=== PATIENT | male | born 1995 | race Caucasian/White ===

== ENCOUNTER 2018-08-15 08:58 | Emergency (ER) | payer SELFPAY ==
[~2018-08-15] VITALS: Ht 170.2 cm; Wt 57.6 kg
[2018-08-15] MEDS ORDERED: AZIT250T12 PO (10:37)
[2018-08-15] MEDS ORDERED: METH4TAB PO (10:37)
--- NOTE | 2018-08-15 10:37 | ED Cough/URI ---
General Chief Complaint: Cough/Cold/Flu Symptoms Stated Complaint: BACK PAIN;RESP PROBLEMS Source: patient Exam Limitations: no limitations History of Present Illness Date Seen by Provider: Aug 15, 2018 Time Seen by Provider: 10:33 Initial Comments To ER with reports of bilateral lateral lower back pain intermittently not present currently, productive cough for 2 months with rhinorrhea and no fevers as well as hemoptysis that started yesterday. He states that he has a mouse infestation in his house that he has been cleaning up and he is worried that he has hantavirus. Timing/Duration: constant Severity/Quality: productive cough, blood streaked sputum Associated Symptoms: cough Allergies and Home Medications Patient Home Medication List Home Medication List Reviewed: Yes Review of Systems Review of Systems Constitutional: see HPI; No chills, No fever EENTM: see HPI Respiratory: see HPI, cough, hemoptysis, phlegm Cardiovascular: no symptoms reported Genitourinary: no symptoms reported Musculoskeletal: no symptoms reported Skin: no symptoms reported Psychiatric/Neurological: No Symptoms Reported Hematologic/Lymphatic: No Symptoms Reported Physical Exam Capillary Refill : Height: '" Weight: lbs. oz. kg; BMI Method: General Appearance: WD/WN, no apparent distress Eyes: Bilateral Eye Normal Inspection, Bilateral Eye PERRL, Bilateral Eye EOMI HEENT: PERRL/EOMI, normal ENT inspection, TMs normal, pharynx normal Neck: non-tender, full range of motion Respiratory: normal breath sounds, no respiratory distress, no accessory muscle use Gastrointestinal: normal bowel sounds, non tender, soft Neurologic/Psychiatric: alert, normal mood/affect, oriented x 3 Skin: normal color, warm/dry Progress/Results/Core Measures Suspected Sepsis SIRS Temperature: Pulse: Respiratory Rate: Blood Pressure / Mean: Results/Orders My Orders Orders - COSTA SERRANO APRN Chest Pa/Lat (2 View) (08/15/18 10:32) Vital Signs/I&O Capillary Refill : Departure Impression Primary Impression: Bronchitis Disposition: 01 HOME, SELF-CARE Condition: Stable Departure-Patient Inst. Decision time for Depature: 10:34 Patient Instructions: Acute Bronchitis, Adult (DC) Add. Discharge Instructions: 1. Medication as directed 2. Return to ER for any concerns 3. All discharge instructions reviewed with patient and/or family. Voiced understanding. Scripts Methylprednisolone (Medrol) 4 Mg Tab.ds.pk 4 MG PO UD, #1 PKG Prov: COSTA SERRANO BAKERY DELIVERER 08/15/18 Azithromycin (Azithromycin) 250 Mg Tablet 250 MG PO UD, #6 TAB TAKE 2 TABLETS ON DAY ONE THEN TAKE 1 TABLET DAILY FOR FOUR MORE DAYS Prov: COSTA SERRANO BAKERY DELIVERER 08/15/18 COSTA SERRANO BAKERY DELIVERER Aug 15, 2018 10:37
--- NOTE | 2018-08-15 11:00 | Diagnostic Imaging Report ---
INDICATION: Cough. Time of exam 11:13 a.m. COMPARISON: No prior studies are available for comparison. FINDINGS: The heart size is normal. The lungs are clear. No infiltrate is detected. No effusion or pneumothorax is seen. The pulmonary vascularity is unremarkable. IMPRESSION: No acute cardiopulmonary process is detected. Dictated by: Dictated on workstation # [id number]
[2018-08-15 13:49] VITALS: BP 138/68
== END 2018-08-15 11:03 | disposition home or self-care (01) ==
LOC: EDUNIT# 08:58 → ER 08:59
DX: J40 Bronchitis, not specified as acute or chronic (principal)
CPT/HCPCS: 71046

== ENCOUNTER 2019-11-22 19:00 | Emergency (ER) | payer SELFPAY ==
[~2019-11-22] VITALS: Ht 170 cm; Wt 59.1 kg
[~2019-11-22 19:00] MED LIST: AZIT250T12 PO; METH4TAB PO
--- OUTSIDE RECORDS SUMMARY | 2019-11-22 19:05 | XMS REPORT | Continuity of Care Document ---
Author Organization Unknown Address Unknown Phone Unavailable Allergies There is no data. Medications There is no data. Problems Date Dx Coded Attending Type Code Diagnosis Diagnosed By 08/17/2018 COSTA SERRANO APRN Ot J40 BRONCHITIS, NOT SPECIFIED ACUTE OR CH 08/17/2018 COSTA SERRANO APRN Ot M54 .5 LOW BACK PAIN Procedures There is no data. Results Test Result Range CULTURE, ANAEROBIC AND AEROBIC - 0 15:39 CULTURE, ANAEROBIC BACTERIA W/GRAM STAIN SEE NOTE NRG CULTURE, AEROBIC BACTERIA SEE NOTE NRG Encounters ACCT No. Visit Date/Time Discharge Status Pt. Type Provider Facility Loc./Unit Complaint [id number] 09/27/2019 13:35:00 09/27/2019 23:59: 59 CLS Outpatient SAMUEL CID LAC [facility] [id number] 09/27/2019 13:35:00 Document Registration [id number] 08/15/2018 08:59:00 019 11:03:00 DIS Outpatient COSTA SERRANO APRN [facility] ER BACK PAIN;RESP PROBLEMS [id number] 11/22/2019 19:01:[address] Emergency STACY RIVERA [facility] ER TOOTH PAIN
[2019-11-22 19:06] VITALS: BP 132/87
[2019-11-22] MEDS ORDERED: AMOX-358 PO (19:24)
--- NOTE | 2019-11-22 19:25 | ED EENT ---
History of Present Illness General Chief Complaint: Dental Problems/Pain Stated Complaint: TOOTH PAIN Nursing Triage Note: Pt ambulates to FT1 with c/o right lower tooth infection x 1 mo that started spreading and causing swelling to neck yesterday. Pt denies any pain, is hoping to get on Abx. Source: patient Exam Limitations: no limitations History of Present Illness Date Seen by Provider: Nov 22, 2019 Time Seen by Provider: 19:22 Initial Comments 24-year-old male who presents to the emergency room complaining of lower right dental pain and tooth infection for the past month. He does have an appointment to see a dentist at [facility] dental. He denies any pain at this time but is requesting antibiotics for his infection. Denies fevers. Location: dental Associated Symptoms: other (dental infection) Allergies and Home Medications Allergies Coded Allergies: No Known Drug Allergies (Unverified , 11/22/19) Home Medications Amoxicillin/Potassium Clav 1 Each Tablet, 1 EACH PO BID Prescribed by: STACY RIVERA on 11/22/191923 Azithromycin 250 Mg Tablet, 250 MG PO UD TAKE 2 TABLETS ON DAY ONE THEN TAKE 1 TABLET DAILY FOR FOUR MORE DAYS Prescribed by: COSTA SERRANO on 08/15/18 1037 Methylprednisolone 4 Mg Tab.ds.pk, 4 MG PO UD Prescribed by: COSTA SERRANO on 08/15/18 1037 Patient Home Medication List Home Medication List Reviewed: Yes Review of Systems Review of Systems Constitutional: see HPI; No chills, No fever Mouth: see HPI, other (and dental infection) All Other Systems Reviewed Negative Unless Noted: Yes Past Pibmaim-Ddjtns-Zqgswu Hx Past Med/Social Hx: Reviewed Nursing Past Med/Soc Hx Patient Social History Recent Foreign Travel: No Contact w/Someone Who Travel: No Recent Infectious Disease Expo: No Recent Hopitalizations: No Seasonal Allergies Seasonal Allergies: No Past Medical History Surgeries: No Respiratory: No Cardiac: No Neurological: No Genitourinary: No Gastrointestinal: No Musculoskeletal: No Endocrine: No HEENT: No Cancer: No Psychosocial: No Integumentary: No Blood Disorders: No Family Medical History Reviewed Nursing Family Hx Physical Exam Vital Signs Vital Signs - First Documented 11/22/19 19:06 Temp 36.8 Pulse 76 Resp 20 B/P (MAP) 132/87 (102) Pulse Ox 99 O2 Delivery Room Air Height, Weight, BMI Height: 5'7.00" Weight: 127lbs. oz. 57.609738rp; 20.00 BMI Method:Stated General Appearance: WD/WN, no apparent distress Mouth/Throat: other (right lower gum swelling and dental caries.) Cardiovascular: normal peripheral pulses, regular rate, rhythm, no edema, no gallop, no JVD, no murmur Respiratory: chest non-tender, lungs clear, normal breath sounds, no respira tory distress, no accessory muscle use Neurologic/Psychiatric: alert, normal mood/affect, oriented x 3 Skin: normal color, warm/dry Progress/Results/Core Measures Results/Orders My Orders Orders - STACY RIVERA Amoxicillin/Clavulanate Tablet (Augmenti (11/22/19 19:30) Vital Signs/I&O 11/22/19 19:06 Temp 36.8 Pulse 76 Resp 20 B/P (MAP) 132/87 (102) Pulse Ox 99 O2 Delivery Room Air Blood Pressure Mean: 102 Departure Impression Primary Impression: Dental abscess Disposition: HOME, SELF-CARE Condition: Stable/Unchanged Departure-Patient Inst. Decision time for Depature: 19:22 Referrals: NO,LOCAL PHYSICIAN (PCP/Family) Primary Care Physician Patient Instructions: Tooth Abscess (DC) Add. Discharge Instructions: Take medication as directed. Follow up with dentist with in 1 week for a recheck. Tylenol or ibuprofen as needed for pain. Return back to the ED for worsening symptoms or concerns as needed. All discharge instructions reviewed with patient and/or family. Voiced understanding. Scripts Amoxicillin/Potassium Clav (Augmentin 875-125 Tablet) 1 Each Tablet 1 EACH PO BID for 10 Days, #20 TAB 0 Refills Prov: STACY RIVERA 11/22/19 STACY RIVERA Nov 22, 2019 19:25
[2019-11-22] MEDS ORDERED: AUGMENTIN 875 MG TAB (AMOXICILLIN/CLAVULANATE) PO SCH (19:30)
== END 2019-11-22 19:36 | disposition home or self-care (01) ==
LOC: EDUNIT# 19:00 → ER 19:01
DX: K04.7 Periapical abscess without sinus (principal)
CPT/HCPCS: 99283

== ENCOUNTER 2019-12-18 19:43 | Emergency (ER) | payer SELFPAY ==
[~2019-12-18] VITALS: Ht 170.2 cm; Wt 55.6 kg
[~2019-12-18 19:43] MED LIST changes: +AMOX-358 PO
[2019-12-18] MEDS ORDERED: NS IV 1000 ML 1,000 ML IV SCH (19:49)
[2019-12-18 20:11] LABS: BASOPHILS % (AUTO) 1 % (0-10); EOSINOPHILS # (AUTO) 0.1 10^3/uL (0.0-0.3); EOSINOPHILS % (AUTO) 1 % (0-10); HEMATOCRIT 43 % (40-54); HEMOGLOBIN 15.3 G/DL (13.3-17.7); LYMPHOCYTES # (AUTO) 1.4 X 10^3 (1.0-4.0); LYMPHOCYTES % (AUTO) 24 % (12-44); MEAN CORPUSCULAR HEMOGLOBIN 30 PG (25-34); MEAN CORPUSCULAR HGB CONC 36 G/DL (32-36); MEAN CORPUSCULAR VOLUME 83 FL (80-99); MEAN PLATELET VOLUME 10.2 FL (7.4-10.4); MONOCYTES # (AUTO) 0.7 X 10^3 (0.0-1.0); MONOCYTES % (AUTO) 12 % (0-12); NEUTROPHILS # (AUTO) 3.6 X 10^3 (1.8-7.8); NEUTROPHILS % (AUTO) 63 % (42-75); PLATELET COUNT 220 10^3/uL (130-400); RED CELL DISTRIBUTION WIDTH 12.8 % (10.0-14.5); WHITE BLOOD COUNT 5.7 10^3/uL (4.3-11.0)
[2019-12-18 20:12] LABS: BILIRUBIN,URINE NEGATIVE (NEGATIVE); CLARITY,URINE CLEAR; COLOR,URINE YELLOW; GLUCOSE, URINE (UA) NEGATIVE (NEGATIVE); KETONES,URINE NEGATIVE (NEGATIVE); LEUKOCYTE ESTERASE ,URINE NEGATIVE (NEGATIVE); NITRITE,URINE NEGATIVE (NEGATIVE); PH,URINE 6.5 (5-9); PROTEIN,URINE 1+ (NEGATIVE)
[2019-12-18 20:28] LABS: ALANINE AMINOTRANSFERASE 55 U/L (0-55); ALBUMIN 4.8 GM/DL (3.2-4.5); ALKALINE PHOSPHATASE 67 U/L (40-136); BILIRUBIN,TOTAL 1.1 MG/DL (0.1-1.0); BUN/CREATININE RATIO 16; CALCIUM 9.4 MG/DL (8.5-10.1); CARBON DIOXIDE 25 MMOL/L (21-32); CHLORIDE 105 MMOL/L (98-107); GFR ESTIMATED > 60; GLUCOSE 105 MG/DL (70-105); POTASSIUM 3.7 MMOL/L (3.6-5.0); SODIUM 142 MMOL/L (135-145); TOTAL PROTEIN 8.2 GM/DL (6.4-8.2)
[2019-12-18] MEDS ORDERED: ASPIRIN 81 MG CHEW (CHILDREN'S ASA) PO ONE (20:30)
--- OUTSIDE RECORDS SUMMARY | 2019-12-18 20:40 | XMS REPORT | Continuity of Care Document ---
Author Organization Unknown Address Unknown Phone Unavailable Allergies Active Description Code Type Severity Reaction Onset Reported/Identified Relationship to Patient Clinical Status Yes No Known Drug Allergies [id number] Drug Allergy Unknown N/A 11/22/2019 Medications There is no data. Problems Date Dx Coded Attending Type Code Diagnosis Diagnosed By 08/15/2018 COSTA SERRANO APRN Ot J40 BRONCHITIS, NOT SPECIFIED ACUTE OR CH 08/15/2018 COSTA SERRANO APRN Ot M54 .5 LOW BACK PAIN 08/17/2018 COSTA SERRANO APRN Ot J40 BRONCHITIS, NOT SPECIFIED ACUTE OR CH 08/17/2018 COSTA SERRANO APRN Ot M54 .5 LOW BACK PAIN 11/23/2019 STACY RIVERA Ot K04.7 PERIAPICAL ABSCESS WITHOUT SINUS 11/23/2019 STACY RIVERA Ot K08.89 OTHER SPECIFIED DISORDERS OF TEETH AND S 11/23/2019 STACY RIVERA Ot K04.7 PERIAPICAL ABSCESS WITHOUT SINUS 11/23/2019 STACY RIVERA Ot K08.89 OTHER SPECIFIED DISORDERS OF TEETH AND S Procedures There is no data. Results Test Result Range CULTURE, ANAEROBIC AND AEROBIC - 0 15:39 CULTURE, ANAEROBIC BACTERIA W/GRAM STAIN SEE NOTE NRG CULTURE, AEROBIC BACTERIA SEE NOTE NRG Complete blood count (CBC) with automate d white blood cell (WBC) differential - 12/18/19 20:05 Blood leukocytes automated count (number/volume) 5.7 10*3/uL 4.3-11.0 Blood erythrocytes automated count (number/volume) 5.15 10*6/uL 4.35-5.85 Venous blood hemoglobin measurement (mass/volume) 15.3 g/dL 13.3-17.7 Blood hematocrit (volume fraction) 43 % 40-54 Automated erythrocyte mean corpuscular volume 83 [ foz_us] 80-99 Automated erythrocyte mean corpuscular h emoglobin (mass per erythrocyte) 30 pg 25-34 Automated erythrocyte mean corpuscular h emoglobin concentration measurement (mass/volume) 36 g/dL 32-36 Automated erythrocyte distribution width ratio 12. 8 % 10.0- 14.5 Automated blood platelet count (count/volume) 220 10*3/uL 130-400 Automated blood platelet mean volume measurement 10.2 [foz_us] 7.4-10.4 Automated blood neutrophils/100 leukocytes 63 % 42-75 Automated blood lymphocytes/100 leukocytes 24 % 12-44 Blood monocytes/100 leukocytes 12 % 0-12 Automated blood eosinophils/100 leukocytes 1 % 0-10 Automated blood basophils/100 leukocytes 1 % 0-10 Blood neutrophils automated count (number/volume) 3.6 10*3 1.8-7.8 Blood lymphocytes automated count (number/volume) 1.4 10*3 1.0-4.0 Blood monocytes automated count (number/volume) 0. 7 10*3 0.0-1.0 Automated eosinophil count 0.1 10*3/uL 0 .0-0.3 Automated blood basophil count (count/volume) 0.0 10*3/uL 0.0-0.1 Encounters ACCT No. Visit Date/Time Discharge Status Pt. Type Provider Facility Loc./Unit Complaint [id number] 09/27/2019 13:35:00 09/27/2019 23:59: 59 CLS Outpatient SAMUEL CID LAC [facility] [id number] 09/27/2019 13:35:00 Document Registration [id number] 11/22/2019 19:01:00 020 19:36:00 DIS Outpatient STACY RIVERA a [facility] ER TOOTH PAIN [id number] 08/15/2018 08:59:00 019 11:03:00 DIS Emergency COSTA SERRANO APRN Via [facility] ER BACK PAIN;RESP PROBLEMS [id number] 12/18/2019 19:45:[address] Emergency MICHAEL CLARK [facility] ER VOMITTING,PAIN WHEN BREATHIN G
--- NOTE | 2019-12-18 20:48 | Diagnostic Imaging Report ---
INDICATION: Shortness of breath COMPARISON made to a prior study from 08/15/2018. FINDINGS: Lungs demonstrate no focal infiltrate or consolidation. There is no effusion. There is no pneumothorax. There does appear to be flattening of the diaphragms that suggests air trapping. There is no effusion. Heart size is appropriate. Pulmonary vascularity appears within normal limits. IMPRESSION: 1. Hyperinflated appearance of the lungs without focal infiltrate or consolidation. Correlate for a smoking history or a history of asthma. Dictated by: Dictated on workstation # [id number]
--- NOTE | 2019-12-18 20:51 | ED General ---
General Chief Complaint: Respiratory Problems Stated Complaint: VOMITTING,PAIN WHEN BREATHING Nursing Triage Note: C/O VOMITTING X2 12/17/2019, SOA TODAY WITH "CHEST PRESSURE" SINCE 1500. Nursing Sepsis Screen: No Definite Risk History of Present Illness Date Seen by Provider: December 18, 2019 Time Seen by Provider: 20:00 Initial Comments 24 year old male presents after vomiting 2 times yesterday and having anxiety with related left chest pressure today since 1500, no radiation to the left arm, neck or jaw. He has no cardiac history. He reports a long-standing history of anxiety he has used marijuana to help with anxiety which is now causing him to have paranoia and making anxiety worse. He is open to seeing mental health. He vapes regularly and smokes marijuana. Last use was approximately 2 days ago. He has lost 20-25 lbs recently, he has been out of work and unable to buy food. He is back to work and regaining his weight. Timing/Duration: 2-3 Days Severity: Mild Associated Systoms: No Cough, No Fever/Chills, No Headaches, No Loss of Appetite; Nausea/Vomiting (yesterday); No Seizure, No Shortness of Air, No Syncope, No Weakness Allergies and Home Medications Allergies Coded Allergies: No Known Drug Allergies (Unverified , 11/22/19) Home Medications Amoxicillin/Potassium Clav 1 Each Tablet, 1 EACH PO BID Prescribed by: STACY RIVERA on 11/22/191923 Azithromycin 250 Mg Tablet, 250 MG PO UD TAKE 2 TABLETS ON DAY ONE THEN TAKE 1 TABLET DAILY FOR FOUR MORE DAYS Prescribed by: COSTA SERRANO on 08/15/18 1037 Methylprednisolone 4 Mg Tab.ds.pk, 4 MG PO UD Prescribed by: COSTA SERRANO on 08/15/18 1037 Patient Home Medication List Home Medication List Reviewed: Yes Review of Systems Review of Systems Constitutional: no symptoms reported, see HPI, weight loss Cardiovascular: see HPI (left chest pressure), chest pain Gastrointestinal: no symptoms reported, see HPI, vomiting (yesterday) Psychiatric/Neurological: See HPI, Anxiety All Other Systems Reviewed Negative Unless Noted: Yes Past Kyjgmjo-Utqfxj-Svhvjj Hx Past Med/Social Hx: Reviewed Nursing Past Med/Soc Hx Patient Social History Alcohol Use: Denies Use Recreational Drug Use: Yes Drug of Choice: CANNIBUS Smoking Status: Current Everyday Smoker Type Used: Electronic/Vapor Recent Foreign Travel: No Contact w/Someone Who Travel: No Recent Infectious Disease Expo: No Recent Hopitalizations: No Physical Abuse: No Sexual Abuse: No Mistreated: No Fear: No Immunizations Up To Date Tetanus Booster (TDap): Unknown Seasonal Allergies Seasonal Allergies: No Past Medical History Surgeries: No Respiratory: No Cardiac: No Neurological: No Genitourinary: No Gastrointestinal: No Musculoskeletal: No Endocrine: No HEENT: No Cancer: No Psychosocial: Yes Anxiety Integumentary: No Blood Disorders: No Physical Exam Vital Signs Vital Signs - First Documented 12/18/19 19:57 Temp 36.5 Pulse 81 Resp 18 B/P (MAP) 138/80 (99) Pulse Ox 98 O2 Delivery Room Air Capillary Refill : Less Than 3 Seconds Height, Weight, BMI Height: 5'7.00" Weight: 127lbs. oz. 57.811187eg; 19.00 BMI Method:Stated General Appearance: WD/WN, Anxious Eyes: Bilateral Eye Normal Inspection, Bilateral Eye PERRL, Bilateral Eye EOMI HEENT: PERRL/EOMI, TMs Normal, Normal ENT Inspection, Pharynx Normal Neck: Full Range of Motion, Normal Inspection, Non Tender, Supple Respiratory: Chest Non Tender, Lungs Clear, Normal Breath Sounds, Other (chest nontender to palpation) Cardiovascular: Regular Rate, Rhythm, No Edema, No Murmur, Normal Peripheral Pulses Gastrointestinal: Normal Bowel Sounds, Non Tender, Soft Neurologic/Psychiatric: Alert, Oriented x3, No Motor/Sensory Deficits, Normal Mood/Affect Skin: Normal Color, Warm/Dry; No Diaphoresis Progress/Results/Core Measures Suspected Sepsis Recent Fever Within 48 Hours: No Infection Criteria Present: None New/Unexplained Altered Menta: No Sepsis Screen: No Definite Risk SIRS Temperature: Pulse: 81 Respiratory Rate: 18 Laboratory Tests 12/18/19 20:05: White Blood Count 5.7 Blood Pressure 138 /80 Mean: 99 Laboratory Tests 12/18/19 20:05: Creatinine 1.10, Platelet Count 220, Total Bilirubin 1.1H Results/Orders Lab Results Laboratory Tests Test 12/18/19 20:00 12/18/19 20:05 Range/Units Urine Color YELLOW Urine Clarity CLEAR Urine pH 6.5 5-9 Urine Specific Lander 1.015 L 1.016-1.022 Urine Protein 1+ H NEGATIVE Urine Glucose (UA) NEGATIVE NEGATIVE Urine Ketones NEGATIVE NEGATIVE Urine Nitrite NEGATIVE NEGATIVE Urine Bilirubin NEGATIVE NEGATIVE Urine Urobilinogen 0.2 < = 1.0 MG/DL Urine Leukocyte Esterase NEGATIVE NEGATIVE Urine RBC (Auto) NEGATIVE NEGATIVE Urine RBC NONE /HPF Urine WBC NONE /HPF Urine Crystals NONE /LPF Urine Bacteria NEGATIVE /HPF Urine Casts NONE /LPF Urine Mucus SMALL H /LPF Urine Culture Indicated NO Urine Opiates Screen NEGATIVE NEGATIVE Urine Oxycodone Screen NEGATIVE NEGATIVE Urine Methadone Screen NEGATIVE NEGATIVE Urine Propoxyphene Screen NEGATIVE NEGATIVE Urine Barbiturates Screen NEGATIVE NEGATIVE Ur Tricyclic Antidepressants Screen NEGATIVE NEGATIVE Urine Phencyclidine Screen NEGATIVE NEGATIVE Urine Amphetamines Screen NEGATIVE NEGATIVE Urine Methamphetamines Screen NEGATIVE NEGATIVE Urine Benzodiazepines Screen NEGATIVE NEGATIVE Urine Cocaine Screen NEGATIVE NEGATIVE Urine Cannabinoids Screen POSITIVE H NEGATIVE White Blood Count 5.7 4.3-11.0 10^3/uL Red Blood Count 5.15 4.35-5.85 10^6/uL Hemoglobin 15.3 13.3-17.7 G/DL Hematocrit 43 40-54 % Mean Corpuscular Volume 83 80-99 FL Mean Corpuscular Hemoglobin 30 25-34 PG Mean Corpuscular Hemoglobin Concent 36 32-36 G/DL Red Cell Distribution Width 12.8 10.0-14.5 % Platelet Count 220 130-400 10^3/uL Mean Platelet Volume 10.2 7.4-10.4 FL Neutrophils (%) (Auto) 63 42-75 % Lymphocytes (%) (Auto) 24 12-44 % Monocytes (%) (Auto) 12 0-12 % Eosinophils (%) (Auto) 1 0-10 % Basophils (%) (Auto) 1 0-10 % Neutrophils # (Auto) 3.6 1.8-7.8 X 10^3 Lymphocytes # (Auto) 1.4 1.0-4.0 X 10^3 Monocytes # (Auto) 0.7 0.0-1.0 X 10^3 Eosinophils # (Auto) 0.1 0.0-0.3 10^3/uL Basophils # (Auto) 0.0 0.0-0.1 10^3/uL Sodium Level 142 135-145 MMOL/L Potassium Level 3.7 3.6-5.0 MMOL/L Chloride Level 105 98-107 MMOL/L Carbon Dioxide Level 25 21-32 MMOL/L Anion Gap 12 5-14 MMOL/L Blood Urea Nitrogen 18 7-18 MG/DL Creatinine 1.10 0.60-1.30 MG/DL Estimat Glomerular Filtration Rate > 60 BUN/Creatinine Ratio 16 Glucose Level 105 70-105 MG/DL Calcium Level 9.4 8.5-10.1 MG/DL Corrected Calcium 8.5-10.1 MG/DL Total Bilirubin 1.1 H 0.1-1.0 MG/DL Aspartate Amino Transf (AST/SGOT) 57 H 5-34 U/L Alanine Aminotransferase (ALT/SGPT) 55 0-55 U/L Alkaline Phosphatase 67 40-136 U/L Troponin I < 0.028 <0.028 NG/ML C-Reactive Protein High Sensitivity 0.02 0.00-0.50 MG/DL Total Protein 8.2 6.4-8.2 GM/DL Albumin 4.8 H 3.2-4.5 GM/DL My Orders Orders - MICHAEL CLARK Cbc With Automated Diff (12/18/19 19:49) Comprehensive Metabolic Panel (12/18/19 19:49) Ua Culture If Indicated (12/18/19 19:49) Ed Iv/Invasive Line Start (12/18/19 19:49) Ns Iv 1000 Ml (Sodium Chloride 0.9%) (12/18/19 19:49) Hs C Reactive Protein (12/18/19 20:24) Drug Screen Stat (Urine) (12/18/19 20:24) Troponin I (12/18/19 20:24) Ekg Tracing (12/18/19 20:24) Chest 1 View, Ap/Pa Only (12/18/19 20:24) Aspirin Chewable Tablet (Baby Aspirin Ch (12/18/19 20:30) Medications Given in ED Current Medications Medications Dose Ordered Sig/Cassy Route Start Time Stop Time Status Last Admin Dose Admin Aspirin 324 mg ONCE ONCE PO 12/18/19 20:30 12/18/19 20:31 DC 12/18/19 20:40 324 MG Vital Signs/I&O 12/18/19 12/18/19 19:57 21:11 Temp 36.5 36.4 Pulse 81 78 Resp 18 16 B/P (MAP) 138/80 (99) 113/74 (99) Pulse Ox 98 98 O2 Delivery Room Air Room Air Capillary Refill : Less Than 3 Seconds Blood Pressure Mean: 99 Progress Note : Time: 20:00 Progress Note Patient seen and evaluated, will obtain labs, EKG, chest x-ray, normal saline 1 L per IV, aspirin 324 mg orally. 2100 patient reports symptoms are improving. Labs all within normal limits. Discharge instructions and return precautions reviewed with patient. ECG Initial ECG Impression Date: December 18, 2019 Initial ECG Impression Time: 20:26 Initial ECG Rate: 76 Initial ECG Rhythm: Normal Sinus Initial ECG Intervals: Normal Initial ECG Intervals CO 184, QRSD 86, QT 384, QTc 432. Maxie P 59, QRS 73, T 61. Initial ECG Impression: Normal Initial ECG Comparisson: No Previous ECG Available Diagnostic Imaging Diagonstic Imaging: Xray Plain Films/CT/US/NM/MRI: chest Comments NAME: SUNIL BOLAND [facility] REC#: [id number] PT STATUS: REG ER : 1995 PHYSICIAN: MICHAEL CLARK ADMIT DATE: 12/18/19/ER Draft Date of Exam:12/18/19 CHEST 1 VIEW, AP/PA ONLY INDICATION: Shortness of breath COMPARISON made to a prior study from 08/15/2018. FINDINGS: Lungs demonstrate no focal infiltrate or consolidation. There is no effusion. There is no pneumothorax. There does appear to be flattening of the diaphragms that suggests air trapping. There is no effusion. Heart size is appropriate. Pulmonary vascularity appears within normal limits. IMPRESSION: 1. Hyperinflated appearance of the lungs without focal infiltrate or consolidation. Correlate for a smoking history or a history of asthma. Dictated on workstation # [id number] Dict: 12/18/192043 Trans: 12/18/192046 [facility] [id number] Interpreted by: LIZANDRO VERMA MD Electronically signed by: Reviewed: Reviewed by Me Departure Impression Primary Impression: Anxiety Disposition: HOME, SELF-CARE Condition: Improved Departure-Patient Inst. Decision time for Depature: 21:00 Referrals: NO,LOCAL PHYSICIAN (PCP/Family) Primary Care Physician Patient Instructions: Anxiety, Adult (DC), Chest Pain That Is Not Caused by the Heart (DC) Add. Discharge Instructions: Stop Vaping, your lungs are showing changes compatible to vaping complications. Establish care with a primary care provider, [facility] and consider mental health. Increase water intake, 16 oz every 3-4 hours, while awake. Discontinue use of Marijuana. Return to the emergency department for new, urgent health care problems. All discharge instructions reviewed with patient and/or family. Voiced understanding. MICHAEL CLARK December 18, 2019 20:51
[2019-12-18 21:10] LABS: BACTERIA,URINE NEGATIVE /HPF
[2019-12-18 21:11] VITALS: BP 113/74
[2019-12-18 21:11] LABS: AMPHETAMINE SCREEN, URINE NEGATIVE (NEGATIVE); BARBITURATE SCREEN URINE NEGATIVE (NEGATIVE); BENZODIAZEPINES SCREEN URINE NEGATIVE (NEGATIVE); CANNABINOID SCREEN, URINE POSITIVE (NEGATIVE); COCAINE SCREEN URINE NEGATIVE (NEGATIVE); METHADONE STAT NEGATIVE (NEGATIVE); METHAMPHETAMINE SCREEN URINE S NEGATIVE (NEGATIVE); OPIATE SCREEN URINE NEGATIVE (NEGATIVE); OXYCODONE STAT NEGATIVE (NEGATIVE); PROPOXYPHENE STAT NEGATIVE (NEGATIVE); TRICYCLIC ANTIDEPRESSANTS SCRE NEGATIVE (NEGATIVE)
== END 2019-12-18 21:11 | disposition home or self-care (01) ==
LOC: EDUNIT# 19:43 → ER 19:45
DX: F41.9 Anxiety disorder, unspecified (principal); F17.290 Nicotine dependence, other tobacco product, uncomplicated; Z79.52 Long term (current) use of systemic steroids
CPT/HCPCS: 36415; 71045; 80053; 80306; 81000; 84484; 85025; 86141; 96360